=== PATIENT | female | born 1955 | race Two or more races ===

== ENCOUNTER 2023-05-16 07:15 | Inpatient (IN) | payer OTHER ==
[~2023-05-16] VITALS: Ht 149.9 cm; Wt 83.9 kg
[2023-05-16] MEDS ORDERED: LABETALOL HCL200 MG PO (08:18)
[2023-05-16] MEDS ORDERED: HYDROCHLOROTHIA50 MG PO (08:18)
[2023-05-16] MEDS ORDERED: PROAIR RESPICL90 MCG IH (08:19)
[2023-05-16] MEDS ORDERED: SYNTHROID50 MCG PO (08:19)
== END 2023-05-20 16:26 | disposition home or self-care (01) | DRG 658 ==
LOC: O/R 05-18 05:41 → SURG 05-18 07:00 → SURH 05-18 13:20
PROVIDERS: ADMIT Urology; ATTEND Urology
PROC: 0GB24ZZ Excision of Left Adrenal Gland, Percutaneous Endoscopic Approach (ICD-10-PCS; 2023-05-18)
PROC: 07BB4ZX Excision of Mesenteric Lymphatic, Percutaneous Endoscopic Approach, Diagnostic (ICD-10-PCS; 2023-05-18)
PROC: 0TT14ZZ Resection of Left Kidney, Percutaneous Endoscopic Approach (ICD-10-PCS; principal; 2023-05-18 07:00)
DX: C64.2 Malignant neoplasm of left kidney, except renal pelvis (principal); I10 Essential (primary) hypertension; E03.9 Hypothyroidism, unspecified